=== PATIENT | male | born 1960 | race Caucasian/White ===

== ENCOUNTER 2019-06-20 07:10 | Day surgery (SDC) | payer BC ==
[~2019-06-20] VITALS: Ht 170.2 cm; Wt 78.3 kg
[~2019-06-20 07:10] MED LIST: CYCL10 PO; OMEP20ER PO; Percocet 5-3251 EACH PO; ROSU5 PO
--- NOTE | 2019-06-20 07:59 | NUR ---
06/20/19 0759 LLOYD DUNHAM ONE BAD IV. ONE GOOD IV IN L AC. NO VIENS IN HANDS AT ALL
== END 2019-06-20 09:35 | disposition home or self-care (01) ==
LOC: ORSCSDS 07:10
PROVIDERS: Internal Medicine Gastroenterology
PROC: 06LY4CC Occlusion of Hemorrhoidal Plexus with Extraluminal Device, Percutaneous Endoscopic Approach (ICD-10-PCS; principal; 2019-06-20 08:30)
DX: K62.5 Hemorrhage of anus and rectum (principal); E78.5 Hyperlipidemia, unspecified; K57.30 Diverticulosis of large intestine without perforation or abscess without bleeding; K21.9 Gastro-esophageal reflux disease without esophagitis; K64.8 Other hemorrhoids; Z87.891 Personal history of nicotine dependence; Z79.899 Other long term (current) drug therapy
CPT/HCPCS: J0330; J0461; J2405; J2704; J7120